=== PATIENT | female | born 1940 | race Caucasian/White ===

== ENCOUNTER → 2018-04-25 15:08 | Outpatient (CLI) | payer MEDICARE | END | disposition home or self-care (01) | LOC: D.US 13:30 | DX: I73.9 Peripheral vascular disease, unspecified (principal) ==

== ENCOUNTER 2020-12-10 10:14 | Day surgery (SDC) | payer MEDICARE ==
[~2020-12-10] VITALS: Ht 157.5 cm; Wt 74.5 kg
--- NOTE | ~2020-12-10 | OP ---
PATIENT NAME: TARYN ALVAREZ MEDICAL RECORD: [id number] :40 LOCATION:D.OPS ADMISSION DATE: SURGEON: GUI DURAN MD DATE OF OPERATION: 12/10/2020 PREOPERATIVE DIAGNOSES: 1. History of Janet fundoplication. 2. Dysphagia. 3. Volume reflux. 4. Recurrent gastroesophageal reflux. POSTOPERATIVE DIAGNOSES: 1. History of Janet fundoplication. 2. Dysphagia. 3. Volume reflux. 4. Recurrent gastroesophageal reflux. 5. 33 gastric polyps and a slipped Janet fundoplication with retained food material in the hiatal hernia. PROCEDURE: 1. Esophagogastroduodenoscopy with antral biopsies to rule out Helicobacter pylori. 2. Gastric hot biopsy forceps polypectomy x1. 3. Argon plasma coagulation ablation of 32 gastric polyps. 4. Balloon dilation of esophagus to 60-Tamazight with kxgcbdr-eil-vrqsjykc balloon. SURGEON: Gui Duran MD NEONATAL DOCTOR: None. BLOOD LOSS: Minimal. ANESTHESIA: IV sedation. COMPLICATIONS: None. ENDOSCOPIC COURSE: The patient was conveyed to the endoscopy suite electively on 12/10/2020. IV sedation was induced by the anesthesia staff. A bite-block was inserted. A gastroscope was inserted into the mouth. It was advanced easily into the hypopharynx. The esophagus was easily intubated as were the stomach and duodenum. Upon withdrawal, retroflexed and angulus views were obtained. Antral biopsies were obtained. I advanced a okdzehw-pfp-mlllslcv balloon dilator. I then sequentially dilated the entire length of the esophagus to 60-Tamazight. The balloon was removed and the gastroscope was reinserted into the esophagus and stomach. There has been no evidence of false passage or perforation. A single gastric hot biopsy forceps polypectomy was performed on the biggest polyp. There were multiple smaller polyps, which I did not think were worthy of pathologic evaluation and these were ablated with the argon plasma cable mock up assembler utilizing the gastric setting in the forced mode. I then unretroflexed the scope and removed it under direct vision. I will see the patient in my office in 2 to 3 weeks. I think she needs to consider having a revisionary procedure, in other words a redo Janet. OPERATIVE REPORT [id number] TARYN ALVAREZ TRANSINT:[id number] Voice Confirmation ID: [id number] DOCUMENT ID: [id number] cc: Jennifer Watters MD. [employer] GUI DURAN MD CC: RUBI DEAN MD, DR. JENNIFER CLARKE and LA NENA RODGERS [id number] DICTATION DATE: 12/10/20 1256 [employer] BAND: 12/10/[address] [facility] 12/10/20 [facility] [address] [id number]
[2020-12-10 10:41] LABS: BASOPHILS 0.4 % (0-2); EOSINOPHILS 1.5 % (0-7); HEMATOCRIT 35.7 % (36.0-48.0); HEMOGLOBIN 11.4 g/dL (12-16); IMMATURE GRANULOCYTES 0.4 % (0-5); LYMPHOCYTE ABS# 1.59 10x3/uL (1.18-3.74); MCH 26.2 pg (26.0-34.0); MCHC 31.9 g/dL (31.0-37.0); MCV 82.1 fL (80.0-100.0); MONOCYTES 5.5 % (2-11); NEUTROPHIL ABS# 8.88 10x3/uL (1.56-6.13); NEUTROPHILS 78.2 % (40-80); PLATELET COUNT 469 10x3/uL (130-400); RBC 4.35 10x6/uL (4.00-5.40); RDW 15.8 % (11.5-14.5); WBC 11.4 10x3/uL (4.8-10.8)
[2020-12-10 10:48] LABS: ANION GAP 11.1 mmol/L (8-16); CALCIUM 9.3 mg/dL (8.5-10.1); CARBON DIOXIDE 28.9 mmol/L (21.0-32.0); CREATININE - SERUM 0.9 mg/dL (0.6-1.3)
[2020-12-10] MEDS ORDERED: NORVASC5 MG PO (11:10)
[2020-12-10] MEDS ORDERED: NEXIUM40 MG PO (11:11)
[2020-12-10] MEDS ORDERED: LOW DOSE ASPIRI81 M1 PO (11:12)
[2020-12-10] MEDS ORDERED: GABAPENTIN300 MG PO (11:14)
[2020-12-10] MEDS ORDERED: HYDROCHLOROTHIA25 MG PO (11:15)
[2020-12-10] MEDS ORDERED: ZETIA10 MG PO (11:15)
[2020-12-10] MEDS ORDERED: ERGOCALCIF50000 UNIT PO (11:16)
[2020-12-10] MEDS ORDERED: METOPROLOL TART25 MG PO (11:16)
[2020-12-10] MEDS ORDERED: DICLOFENAC SOD100 MG PO (11:17)
[2020-12-10] MEDS ORDERED: TRELEGY ELLIPT1 EACH INH (11:17)
[2020-12-10] MEDS ORDERED: VENTOLIN HFA [SP8 GM INH (11:21)
[2020-12-10] MEDS ORDERED: IPRAT-ALBUT 0.5-3 ML UPD (11:22)
[2020-12-10] MEDS ORDERED: MILK OF MAGNESI30 ML PO (11:23)
[2020-12-10] MEDS ORDERED: HALCION0.25 MG PO (11:24)
[2020-12-10 11:51] VITALS: BP 136/69; Ht 157.5 cm; Wt 74.5 kg
--- NOTE | 2020-12-10 16:15 | NUR ---
1410 DRESSED, AWAKE & ALERT. GIVEN DISCHARGE INFORMATION INCLUDING MED REC, RTC APPT., SHEET LISTING NSAIDS TO AVOID & [facility] POST ENDOSCOPY D/C INSTRUCTIONS. PT VOICED UNDERSTANDING. TO PRIVATE CAR PER THIS NURSE. HOME WITH MR. ALVAREZ. Valentín PEREZ R.N.
== END 2020-12-10 14:10 | disposition home or self-care (01) ==
LOC: D.OPS 10:14
PROVIDERS: Anesthesiology; ATTEND Surgery
DX: R13.10 Dysphagia, unspecified (principal); K21.9 Gastro-esophageal reflux disease without esophagitis; Z98.890 Other specified postprocedural states; K31.7 Polyp of stomach and duodenum; E78.5 Hyperlipidemia, unspecified; I10 Essential (primary) hypertension; J44.9 Chronic obstructive pulmonary disease, unspecified

== ENCOUNTER → 2021-01-31 10:46 | Outpatient (CLI) | payer MEDICARE ==
[~2021-01-31 10:46] MED LIST: DICLOFENAC SOD100 MG PO; ERGOCALCIF50000 UNIT PO; GABAPENTIN300 MG PO; HALCION0.25 MG PO; HYDROCHLOROTHIA25 MG PO; IPRAT-ALBUT 0.5-3 ML UPD; LOW DOSE ASPIRI81 M1 PO; METOPROLOL TART25 MG PO; MILK OF MAGNESI30 ML PO; NEXIUM40 MG PO; NORVASC5 MG PO; TRELEGY ELLIPT1 EACH INH; VENTOLIN HFA [SP8 GM INH; ZETIA10 MG PO
== END | disposition home or self-care (01) ==
LOC: D.RAD 10:46
PROVIDERS: ATTEND Nurse Practitioner Family
DX: R05 Cough (principal)

== ENCOUNTER → 2021-03-01 13:08 | Outpatient (CLI) | payer MEDICARE | END | disposition home or self-care (01) | LOC: D.LAB 10:58 | PROVIDERS: ATTEND Internal Medicine Pulmonary Disease | DX: Z11.52 Encounter for screening for COVID-19 (principal) ==

== ENCOUNTER → 2021-03-13 10:37 | Outpatient (CLI) | payer MEDICARE ==
[2021-03-13 12:10] LABS: BASOPHILS 1.2 % (0-2); EOSINOPHILS 2.1 % (0-7); HEMATOCRIT 33.1 % (36.0-48.0); HEMOGLOBIN 10.7 g/dL (12-16); LYMPHOCYTES 25.7 % (15-50); MCH 24.2 pg (26.0-34.0); MCHC 32.3 g/dL (31.0-37.0); MCV 75.1 fL (80.0-100.0); MEAN PLATELET VOLUME 5.9 fL (7.4-10.4); RBC 4.41 10x6/uL (4.00-5.40); RDW 18.4 % (11.5-14.5); WBC 6.8 10x3/uL (4.8-10.8)
[2021-03-13 12:18] LABS: PLATELET COUNT 602 10x3/uL (130-400)
== END | disposition home or self-care (01) ==
LOC: D.RT 02-10 13:00
PROVIDERS: ATTEND Internal Medicine Pulmonary Disease
DX: R06.09 Other forms of dyspnea (principal); R91.8 Other nonspecific abnormal finding of lung field; Z11.52 Encounter for screening for COVID-19